=== PATIENT | male | born 1975 | race Two or more races ===

== ENCOUNTER 2019-04-07 03:48 | Inpatient (IN) | payer BC, OTHER ==
[2019-04-07] MEDS ORDERED: HYDROMORPHONE 1 MG/1 ML DISP.SYRIN ONE ×2 (04:15→06:33)
[2019-04-07] MEDS ORDERED: ONDANSETRON HCL/PF 4 MG/2 ML VIAL ONE (04:15)
[2019-04-07] MEDS ORDERED: ONDANSETRON HCL/PF 4 MG/2 ML VIAL IVP ONE (04:30)
[2019-04-07] MEDS ORDERED: IV NS 0.9% 1,000 ML BAG IV ONE (04:30)
[2019-04-07] MEDS ORDERED: HYDROMORPHONE INJ 2 MG/ML DISP.SYRIN IV ONE (04:30)
[2019-04-07] MEDS ORDERED: METRONIDAZOLE 500MG/ NS 100ML 500 MG in PREMIX 1 EA IV SCH (06:30)
[2019-04-07] MEDS ORDERED: Z GUARD REMEDY 2 OZ OINT TP PRN (06:30)
[2019-04-07] MEDS ORDERED: CEFTRIAXONE 2 G in IV D5W 100 ML IV SCH (06:30)
[2019-04-07] MEDS ORDERED: ACETAMINOPHEN 650 MG/SUPP.RECT RC PRN (06:30)
[2019-04-07] MEDS ORDERED: MAG HYDROX/AL HYDROX/SIMETH 30 ML UDC PO PRN (06:30)
[2019-04-07] MEDS ORDERED: PIPERACILLIN /TAZOBACTAM 3.375 G VIAL IV ONE (06:42)
[2019-04-07] MEDS ORDERED: HYDROMORPHONE 1 MG/1 ML DISP.SYRIN IV PRN (07:00)
[2019-04-07] MEDS ORDERED: PIPERACILLIN /TAZOBACTAM 3.375 G in IV D5W 50 ML IV SCH (07:00)
[2019-04-07] MEDS: MORPHINE SULFATE INJ 2 MG/ML DISP.SYRIN IV PRN ×3 (09:21→21:27)
[2019-04-07] MEDS: IV NS 0.9% 1,000 ML IV PRN (09:27)
[2019-04-07] MEDS: METRONIDAZOLE 500MG/ NS 100ML 500 MG in PREMIX 1 EA IV SCH ×2 (11:00→20:35)
[2019-04-07] MEDS: CEFTRIAXONE 2 G in IV D5W 100 ML IV SCH (11:10)
[2019-04-07] MEDS ORDERED: AMLO10TA7 PO (11:41)
[2019-04-07] MEDS ORDERED: OMEP20CA11 PO (11:41)
[2019-04-07] MEDS ORDERED: ESCI20TA PO (11:41)
[2019-04-07] MEDS ORDERED: BUPIVACAINE MPF 0.5% W/EPI INJ 30 ML VIAL ONE (16:45)
[2019-04-07] MEDS ORDERED: LIDOCAINE HCL/PF 1% 30 ML SDV ONE (16:45)
[2019-04-07] MEDS ORDERED: HYDROMORPHONE INJ 2 MG/ML DISP.SYRIN ONE (17:00)
[2019-04-07] MEDS ORDERED: FENTANYL PF 100MCG/2ML AMPUL ONE (17:00)
[2019-04-07] MEDS ORDERED: MIDAZOLAM HCL 2 MG/2ML VIAL ONE (17:00)
[2019-04-07] MEDS ORDERED: ROCURONIUM BROMIDE 50 MG/5 ML ONE (17:01)
[2019-04-07] MEDS ORDERED: diphenhydrAMINE HCL 50 MG/ML VIAL ONE (17:16)
[2019-04-08] MEDS: MORPHINE SULFATE INJ 2 MG/ML DISP.SYRIN IV PRN ×4 (01:41→21:25)
[2019-04-08] MEDS: METRONIDAZOLE 500MG/ NS 100ML 500 MG in PREMIX 1 EA IV SCH ×3 (05:02→21:13)
[2019-04-08] MEDS: CEFTRIAXONE 2 G in IV D5W 100 ML IV SCH (10:16)
[2019-04-08] MEDS: IV NS 0.9% 1,000 ML IV PRN (10:32)
[2019-04-08] MEDS: HYDROCODONE/APAP 5/325MG 1 EACH TABLET PO PRN ×2 (10:51→17:15)
[2019-04-08] MEDS ORDERED: K PHOS NEUTRAL 250 MG TABLET PO ONE (13:30)
[2019-04-08] MEDS: PANTOPRAZOLE 40 MG TABLET.DR PO SCH (17:32)
[2019-04-09] MEDS: IV NS 0.9% 1,000 ML IV PRN ×2 (00:55→17:39)
[2019-04-09] MEDS: HYDROCODONE/APAP 5/325MG 1 EACH TABLET PO PRN ×3 (01:45→22:43)
[2019-04-09] MEDS: METRONIDAZOLE 500MG/ NS 100ML 500 MG in PREMIX 1 EA IV SCH (05:00)
[2019-04-09] MEDS: PANTOPRAZOLE 40 MG TABLET.DR PO SCH (07:55)
[2019-04-09] MEDS ORDERED: K PHOS NEUTRAL 250 MG TABLET PO ONE (10:00)
[2019-04-09] MEDS: CEFTRIAXONE 2 G in IV D5W 100 ML IV SCH (11:26)
[2019-04-09] MEDS: METRONIDAZOLE 500 MG TABLET PO SCH ×2 (13:11→21:15)
[2019-04-09] MEDS: MORPHINE SULFATE INJ 2 MG/ML DISP.SYRIN IV PRN ×2 (13:25→21:15)
[2019-04-10] MEDS: MORPHINE SULFATE INJ 2 MG/ML DISP.SYRIN IV PRN ×4 (01:23→23:22)
[2019-04-10] MEDS: IV NS 0.9% 1,000 ML IV PRN ×2 (03:21→18:36)
[2019-04-10] MEDS: METRONIDAZOLE 500 MG TABLET PO SCH ×3 (05:10→21:54)
[2019-04-10] MEDS: PANTOPRAZOLE 40 MG TABLET.DR PO SCH (07:49)
[2019-04-10] MEDS: HYDROCODONE/APAP 5/325MG 1 EACH TABLET PO PRN ×3 (08:23→21:55)
[2019-04-10] MEDS: CEFTRIAXONE 2 G in IV D5W 100 ML IV SCH (10:02)
[2019-04-11] MEDS: METRONIDAZOLE 500 MG TABLET PO SCH ×2 (05:57→12:06)
[2019-04-11] MEDS: IV NS 0.9% 1,000 ML IV PRN (07:22)
[2019-04-11] MEDS: PANTOPRAZOLE 40 MG TABLET.DR PO SCH (08:06)
[2019-04-11] MEDS: CEFTRIAXONE 2 G in IV D5W 100 ML IV SCH (12:06)
== END 2019-04-11 13:30 | disposition home health service (06) | DRG 338 ==
DX: K35.33 Acute appendicitis with perforation, localized peritonitis, and gangrene, with abscess (principal); A41.9 Sepsis, unspecified organism; N17.0 Acute kidney failure with tubular necrosis; I25.10 Atherosclerotic heart disease of native coronary artery without angina pectoris; I10 Essential (primary) hypertension; K44.9 Diaphragmatic hernia without obstruction or gangrene; K57.90 Diverticulosis of intestine, part unspecified, without perforation or abscess without bleeding; R33.9 Retention of urine, unspecified; E66.9 Obesity, unspecified; Z68.31 Body mass index [BMI] 31.0-31.9, adult; E80.6 Other disorders of bilirubin metabolism; R74.0 Nonspecific elevation of levels of transaminase and lactic acid dehydrogenase [LDH]; E86.1 Hypovolemia; F17.210 Nicotine dependence, cigarettes, uncomplicated

== ENCOUNTER 2020-05-11 06:53 | Emergency (ER) | payer BC, OTHER ==
[~2020-05-11] VITALS: Ht 175.3 cm; Wt 90.7 kg
[~2020-05-11 06:53] MED LIST: AMLO10TA7 PO; ESCI20TA PO; OMEP20CA15 PO
--- NOTE | 2020-05-11 07:08 | NUR ---
PT AAOX4. BIBSELF C/O "I WOULD LIKE TO DETOX." PT REQUESTING VALIUM AND FOR THE E.D. STAFF TO HELP HIM DETOX. LAST DRINK WAS THIS MORNING. -ETOH, PT ABLE TO AMBULATE WITH STEADY GAIT. VSS. AWAITING MD FOR EVAL AND ORDERS.
[2020-05-11] MEDS ORDERED: DIAZEPAM 5 MG TABLET ONE ×2 (07:28→08:36)
[2020-05-11] MEDS: DIAZEPAM 10 MG TABLET PO ONE ×2 (07:29→08:41)
--- NOTE | 2020-05-11 07:29 | NUR ---
UNABLE TO PROVIDE URINE
[2020-05-11 08:13] LABS: BASOPHILS % (AUTO) 0.6 % (0.0-2.0); EOSINOPHILS % (AUTO) 0.2 % (0.0-6.0); HEMATOCRIT 43 % (39-51); HEMOGLOBIN 14.8 g/dL (13.5-17.5); LYMPHOCYTES # (AUTO) 2.9 /CMM (0.8-4.8); MEAN CORPUSCULAR HGB CONC 34 g/dl (31.0-36.0); MEAN CORPUSCULAR VOLUME 91 fL (80-96); MONOCYTES # (AUTO) 0.6 /CMM (0.1-1.30); MONOCYTES % (AUTO) 8.5 % (2.0-12.0); NEUTROPHILS # (AUTO) 3.5 /CMM (1.8-8.9); NEUTROPHILS % (AUTO) 49.7 % (43.0-81.0); PLATELET COUNT (AUTO) 270 /CMM (150-450); RED BLOOD CELL COUNT(AUTO) 4.76 MIL/uL (4.5-6.0); WHITE BLOOD COUNT (AUTO) 7.1 K/uL (4.3-11.0)
[2020-05-11 08:18] LABS: ALANINE AMINOTRANSFERASE 35 U/L (12-78); ALBUMIN 4.1 g/dL (3.4-5.0); ALCOHOL, BLOOD 269 mg/dL (0-0); ALKALINE PHOSPHATASE 122 U/L (46-116); ASPARTATE AMINOTRANSFERASE 31 U/L (15-37); BILIRUBIN,DIRECT 0.2 mg/dL (0.0-0.2); BILIRUBIN,TOTAL 0.8 mg/dL (0.2-1.0); CALCIUM, SERUM 8.3 mg/dL (8.5-10.1); CARBON DIOXIDE 26 mmol/L (21-32); CHLORIDE 102 mmol/L (98-107); CREATININE 0.9 mg/dL (0.6-1.3); GLUCOSE 107 mg/dL (74-106); POTASSIUM 3.1 mmol/L (3.5-5.1); SODIUM SERUM 143 mmol/L (136-145); TOTAL PROTEIN, SERUM 7.5 g/dL (6.4-8.2); UREA NITROGEN, BLOOD 7 mg/dL (7-18)
[2020-05-11 08:20] LABS: ACETAMINOPHEN 0 ug/ml (10-30); SALICYLATE < 0.2 mg/dL (2.8-20.0)
[2020-05-11] MEDS ORDERED: POTASSIUM CHLORIDE 20 MEQ TAB.PRT.SR PO ONE (08:36)
[2020-05-11] MEDS: POTASSIUM CHLORIDE 20 MEQ TAB.PRT.SR PO ONE (08:41)
[2020-05-11 09:00] VITALS: BP 128/88
--- NOTE | 2020-05-11 09:00 | NUR ---
PATIENT A/OX4, BREATHING EVEN AND UNLABORED, NO SOB NOTED, NEEDS ATTENDED. KEPT COMFORTABLE. Patient discharged to home in stable condition. Written and verbal after care instructions given. Patient verbalizes understanding of instruction.
== END 2020-05-11 09:01 | disposition home or self-care (01) ==
LOC: ER 06:56
DX: F10.129 Alcohol abuse with intoxication, unspecified (principal); E87.6 Hypokalemia; I10 Essential (primary) hypertension; Z79.899 Other long term (current) drug therapy; Y90.8 Blood alcohol level of 240 mg/100 ml or more
CPT/HCPCS: 36415; 80048; 80076; 80305; 80307; 80329; 85025; 99284; G0480